=== PATIENT | female | born 1975 | race African-American/Black ===

== ENCOUNTER 2022-09-12 14:06 | Emergency (ER) | payer BC ==
[2022-09-12] MEDS ORDERED: Ketorolac Tromethamine 30 MG/ML VIAL ONE (18:16)
[2022-09-12] MEDS ORDERED: Dexamethasone 10 MG/ML VIAL ONE (18:16)
[2022-09-12] MEDS ORDERED: Diazepam 10 MG/2 ML SYRINGE ONE (18:16)
== END 2022-09-12 19:45 | disposition home or self-care (01) ==
LOC: CSHERS 14:06
DX: M54.42 Lumbago with sciatica, left side (principal)
CPT/HCPCS: 96372; 99283; J1100; J1885; J3360

== ENCOUNTER 2025-08-12 14:59 | Outpatient (CLI) | payer BC | END 2025-08-12 15:00 | disposition home or self-care (01) | LOC: CSHMAMMO 14:59 | PROVIDERS: ATTEND Nurse Practitioner Family | DX: Z12.31 Encounter for screening mammogram for malignant neoplasm of breast (principal) | CPT/HCPCS: 77063; 77067 ==